=== PATIENT | male | born 1980 | race Caucasian/White ===

== ENCOUNTER 2021-08-13 18:35 | Observation (INO) | payer OTHER, SELFPAY ==
[2021-08-13] VITALS (13 sets, daily range): BP systolic 145–214; BP diastolic 102–140; PULSE 88–107; RESP 14–20; TEMP 36.3–37.7; O2SAT 97–100; BMI 29.6
--- NOTE | ~2021-08-13 | US_ITS ---
EXAMINATION: US retroperitoneal duplex ltd DATE: 08/15/2021 15:13 CDT INDICATION: Hypertensive urgency. TECHNIQUE: Sonographic imaging of the kidneys was performed with a 3.5 MHz transducer. Retroperitone al duplex sonogram of the renal arteries also obtained. FINDINGS: No focal flow abnormalities are seen in the renal arteries on color Doppler. The peak syst olic velocity ranges of the right and left renal arteries and aorta are 76 cm per second, 100 cm per second, and 72 cm per second, respectively. The velocities and renal to aortic ratios are within norm al limits. Renal echotexture is normal bilaterally without hydronephrosis, contour deforming mass or renal stone. Right kidney measures 11.3 cm. Left kidney measures 12.3 cm. IMPRESSION: 1. No Doppler evidence of renal artery stenosis. Reviewed, dictated and finalized at location A.
--- NOTE | ~2021-08-13 | CT_ITS ---
EXAMINATION: CT brain wo con DATE: 08/13/2021 19:24 INDICATION: Dizziness, HIGH bp . TECHNIQUE: Computed tomography (CT) of the head was performed without intravenous contrast. The mA wa s adjusted according to patient size. Iterative reconstruction technique was employed. The dose-lengt h product was 605.33 mGy-cm. COMPARISON: None FINDINGS: No acute intracranial hemorrhage or extra-axial fluid collection. No hydrocephalus, mass, or herniation. No acute ischemic infarct. Unremarkable dural venous sinus attenuation. No acute osseous abnormality. The aerated spaces are clear. William matter lined cleft in the right cerebral hemisphere extending from the extra-axial space to the right lateral ventricle. Lateral ventricles are enlarged with abnormal morphology on the right. Septu m pellucidum is incompletely visualized. Thin corpus callosum, poorly visualized anteriorly. IMPRESSION: No acute intracranial process. Right cerebral closed lip schizencephaly, a congenital malformation. T his can be associated with septo-optic dysplasia, agenesis of the corpus callosum, and other anomalie s. Outpatient MRI of the brain be helpful for further evaluation if not previously characterized. Reviewed, dictated and finalized at location K. IMPRESSION: No acute intracranial process. Right cerebral closed lip schizencephaly, a peter enital malformation. This can be associated with septo-optic dysplasia, agenesi s of the corpus callosum, and other anomalies. Outpatient MRI of the brain be h elpful for further evaluation if not previously characterized.
--- NOTE | 2021-08-13 18:44 | ECG_ITS ---
Measurements Intervals [place] Rate: 101 P: 24 IA: 174 QRS: -1 QRSD: 103 T: 39 QT: 350 QTc: 456 Interpretive Statements SINUS TACHYCARDIA POSSIBLE LEFT ATRIAL ENLARGEMENT POSSIBLE LEFT VENTRICULAR HYPERTROPHY BASELINE ARTIFACT- I, III, AVL, AVF BORDERLINE ECG Electronically Signed On 08-13-2021 20:17:24 CDT by Rajiv Nieto D.O.
--- NOTE | 2021-08-13 18:52 | PC.NURSE ---
Pt to ED with complaints of sudden onset dizziness today while driving. Pt reports he felt light headed and his ears started ringing. Pt states dizziness lasted approximately 30 seconds and then subsided. Pt states he has felt off all day and his legs feel like rubber . Pt states legs feel heavy. Denies any unilateral numbness or weakness. Pt denies vision changes or nausea. Pt A&O x4.
[2021-08-13 19:03] LABS: Basophils Percent Auto 0.4 % (0.2-1.2); Eosinophils Absolute Auto 0.2 K/mm3 (0-0.3); Eosinophils Percent Auto 1.7 % (0-4.4); Hemoglobin 17.2 g/dL (14.0-18.0); Immature Granulocyte Absolute 0.03 K/mm3 (0.00-0.031); Immature Granulocyte Percent A 0.3 % (0-0.5); Lymphocytes Absolute Auto 2.56 K/mm3 (0.9-3.2); Lymphocytes Percent Auto 24.4 % (18.3-44.2); Mean Corpuscular HGB Conc 33.7 g/dl (32-36); Mean Corpuscular Hemoglobin 30.9 pg (26-34); Mean Corpuscular Volume 91.6 fl (80-100); Mean Platelet Volume 9.9 fl (7.4-10.4); Monocytes Absolute Auto 0.7 K/mm3 (0.1-0.6); Monocytes Percent Auto 6.9 % (2.6-8.5); Neutrophils Percent Auto 66.3 % (45.5-73.1); Platelet Count Result 260 k/mm3 (150-375); Red Blood Count 5.57 M/mm3 (4.6-6.20); Red Cell Distribution Width 13.8 % (11.5-14.5); White Blood Count 10.5 K/mm3 (4.5-10.0)
--- NOTE | 2021-08-13 19:04 | PC.NURSE ---
Dr. Zhou made aware of pt's presenting symptoms and current blood pressures. Per Dr. Zhou's verbal orders, give 20mg labetalol IV q10 minutes. Hold for SBP of 180 or less.
[2021-08-13] MEDS: LABETALOL HCL INJ 100 MG/20 ML VIAL 20 MG IV PUSH ×2 (19:09→21:13)
[2021-08-13 19:12] LABS: Alanine Aminotransferase 53 U/L (6-50); Albumin Level 4.9 g/dL (3.5-5.1); Alkaline Phosphatase 94 U/L (38-126); Anion Gap 11 mmol/L (8-16); Aspartate Amino Transferase 48 U/L (17-59); Bilirubin,Total 0.7 mg/dL (0.2-1.3); Blood Urea Nitrogen 14 mg/dL (9-20); Calcium 9.3 mg/dL (8.4-10.2); Carbon Dioxide 28 mmol/L (22-30); Chloride 98 mmol/L (98-107); Estimated CRCL calculation 97 ml/min; Estimated Glomerular Filt Rate > 60; Glucose 120 mg/dL (65-110); Potassium 3.6 mmol/L (3.4-5.0); Sodium 137 mmol/L (137-145)
--- NOTE | 2021-08-13 19:13 | ED.DIZZY ---
HPI - Dizziness General Chief Complaint: Dizziness Stated Complaint: dizziness, legs feel rubbery Time Seen by Provider: 08/13/21 19:12 Source: patient History of Present Illness HPI Narrative: Patient is a 41-year-old male complaining of dizziness accompanied by legs rubbery that started today. Patient states that one of his family members a nurse took his blood pressure and it was 180 systolic . Patient states that he was diagnosed with hypertension 10 years ago but they attributed to anxiety and has been off his medication since then. Patient denies any speech or visual disturbance, focal weakness numbness, unsteady gait, headache, chest pain, shortness of breath, abdominal pain, nausea, vomiting or diaphoresis. Related Data Allergies Allergy/AdvReac Type Severity Reaction Status Date / Time Penicillins Allergy Unknown Verified 08/13/21 18:51 Sulfa (Sulfonamide Allergy Unknown Verified 08/13/21 18:51 Antibiotics) Review of Systems Review of Systems: All systems reviewed & are unremarkable except as noted in HPI and below Constitutional: Constitutional: Denies body ache(s), Denies chills, Denies excessive sweating, Denies fatigue, Denies fever(s), Denies headache(s), Denies lethargy, Denies malaise, Denies weakness and Denies weight loss Eyes: Eyes: Denies blurry vision, Denies change in vision and Denies loss of vision ENT: Denies ear discharge, Denies headache(s), Denies lip swelling, Denies epistaxis, Denies nasal congestion, Denies neck pain, Denies throat swelling and Denies tongue swelling Cardiovascular: Cardiovascular: Denies chest pain, Denies chest pain at rest, Denies chest pain with activity, Denies diaphoresis, Denies rapid heart rate, Denies edema, Denies irregular heart rhythm, Denies lightheadedness, Denies palpitations, Denies dyspnea and Denies dyspnea on exertion Respiratory: Respiratory: Denies chest congestion, Denies cough, Denies hemoptysis, Denies dyspnea and Denies dyspnea on exertion Gastrointestinal: Gastrointestinal: Denies abdominal pain, Denies melena, Denies hematochezia, Denies diarrhea, Denies nausea, Denies vomiting and Denies hematemesis Musculoskeletal: Musculoskeletal: Denies abnormal gait, Denies deformity, Denies joint swelling, Denies limited range of motion, Denies neck pain and Denies numbness Neurologic: Denies Abnormal speech present, Denies abnormal gait, Denies confusion, Denies dizziness, Denies headache(s), Denies focal weakness, Denies loss of vision, Denies numbness, Denies Other visual disturbances, Denies Sensory deficit (Neuro) and Denies weakness Psychiatric: Psychiatric: Denies confusion, Denies depression, Denies auditory hallucinations, Denies homicidal ideation and Denies suicidal ideation Endocrine: Endocrine: Denies cold intolerance, Denies excessive sweating, Denies fatigue, Denies heat intolerance and Denies palpitations Hematologic/Lymphatic: Hematologic/Lymphatic: Denies easy bleeding and Denies easy bruising Allergic/Immunologic: Allergic/Immunologic: Denies lip swelling, Denies throat swelling and Denies tongue swelling PMFSH Comments Past medical history: None Family history: Positive for hypertension neck pain social history: Non-smoker no EtOH or drug use Exam Const: General: cooperative, healthy appearing, comfortable, no acute distress, well developed, alert and awake; No confusion Orientation/consciousness: oriented to person, oriented to place, oriented to time, patient oriented x3 and No confusion Limitations: no limitations HENMT: Head: normal to inspection, normocephalic and atraumatic Ears: hearing grossly normal bilaterally, TM normal on the right and TM normal on the left General nose exam: Normal external nose present, Normal nares present and No nasal discharge present Face and sinus: normal facial exam Mouth: Yes Normal oral and palatal mucosa present, Yes lip normal, Yes tongue normal and Yes oropharynx normal Throat: posterior orop
--- NOTE | 2021-08-13 19:20 | PC.NURSE ---
Assuming care of pt.
[2021-08-13 19:57] LABS: Troponin I < 0.012 ng/mL (0.000-0.034)
[2021-08-13] MEDS: hydrALAZINE HCL 20 MG/ML VIAL 10 MG IV PUSH (19:59)
[2021-08-13] MEDS: LORazepam INJ (*CRX) 2 MG/ML VIAL 1 MG IV PUSH (21:13)
--- NOTE | 2021-08-13 21:59 | ADMGEN ---
This patient, Jairo Myers, was admitted to IMU Room 209-01 at 2159. Patient/family oriented to hospital policies and general routines including ID bracelet, bed and alarms, visiting hours, pain management, procedures, bathroom and other care routines, personal items, smoking policy, room service/diet, and visiting hours. Information on how to activate the Rapid Response Team has been discussed. Patient/Family are encouraged to report perceived risks to care and to ask questions if they do not understand what they are told or what they should do.
--- NOTE | 2021-08-13 23:07 | PM.IMHP ---
H&P: HPI History of Present Illness Date/Time: 08/13/21 23:07 Chief Complaint: Dizziness Narrative: This is a 41-year-old male with past medical history significant for tobacco dependence, alcohol dependence, psychiatric illness. Patient presents to the emergency room from work due to dizziness and feeling his legs rubbery , upon arrival to the emergency room patient was found to have a systolic blood pressure in the 170 to 180s range, patient has not been taking in his medication for blood pressure in many years after he was started on psychiatric treatment for that this took care of his blood pressure as well and therefore no need to continue his home antihypertensive meds. Patient denies any changes of his vision, any chest pain, any shortness of breath, no palpitations, he had near syncopal episode and unsteady gait. In the emergency room patient was noted to have red discoloration of the skin felt to be secondary to his alcohol intake. Preliminary workup has been unrevealing. Patient has been admitted for further evaluation, management and treatment. Review of Systems Review of Systems: Dizziness, legs feel rubbery, near-syncope. Constitutional: Constitutional: Denies fatigue, Denies fever(s) and Denies weakness Eyes: Eyes: Denies change in vision ENT: Denies dysphagia, Reports dizziness, Denies nasal congestion, Denies nasal discharge, Denies nasal obstruction, Denies odynophagia and Reports disequilibrium Cardiovascular: Cardiovascular: Denies chest pain, Denies syncope, Reports pedal edema, Denies claudication, Reports lightheadedness, Denies radiating jaw, neck or arm pain, Denies palpitations and Denies dyspnea on exertion Respiratory: Respiratory: Denies chest congestion, Denies cough and Denies dyspnea Gastrointestinal: Gastrointestinal: Denies abdominal pain, Denies dyspepsia, Denies heartburn, Denies diarrhea, Denies nausea and Denies vomiting Genitourinary: Genitourinary: Denies dysuria Musculoskeletal: Musculoskeletal: Reports other (Legs feel rubbery) Integumentary/Breasts: Skin/Breast: Denies rash Neurologic: Reports dizziness, Denies syncope, Denies focal weakness and Reports Sensory deficit (Neuro) (Legs feel rubbery) Psychiatric: Psychiatric: Reports no additional psychiatric complaints and Reports as per HPI Endocrine: Endocrine: Denies cold intolerance, Denies fatigue, Denies flushing, Denies heat intolerance, Denies polyphagia, Denies polydipsia and Denies palpitations Hematologic/Lymphatic: Hematologic/Lymphatic: Reports no additional hematologic/lymphatic complaints and Reports as per HPI Allergic/Immunologic: Allergic/Immunologic: Reports no additional allergic/immunologic complaints and Reports as per HPI [facility] Family History Family History (Updated 08/13/21 @ 22:04 by Mai Craft RN) Other Adopted Social History Social History Smoking packs per day: 1 Smoking cigarettes per day: 20.0 Smoking status: Current every day smoker Alcohol intake: current Drinks per week: 28 Substance use: never Substance use type: does not use Spiritual care concerns: No Meds Home Medications and Allergies Home Medications Medication Instructions Recorded Confirmed Type duloxetine 60 mg capsule,delayed 120 cap PO .HS 08/13/21 08/13/21 History release (Cymbalta) quetiapine 300 mg tablet (Seroquel) 300 mg PO .HS 08/13/21 08/13/21 History Allergies Allergy/AdvReac Type Severity Reaction Status Date / Time Penicillins Allergy Unknown Verified 08/13/21 18:51 Sulfa (Sulfonamide Allergy Unknown Verified 08/13/21 18:51 Antibiotics) Vital Signs Vital Signs - 24 hr 08/13/21 18:37 08/13/21 18:55 08/13/21 19:07 Temperature 97.4 F L Pulse Rate 95 101 H 99 Respiratory Rate 16 18 16 Blood Pressure 206/135 H 214/131 H 201/140 H Pulse Oximetry 99 100 100 Oxygen Delivery Room Air 08/13/21 19:30
[2021-08-13] MEDS: QUEtiapine FUMARATE 100 MG TABLET 300 MG PO (23:46)
[2021-08-13] MEDS: DULoxetine HCL 60 MG CAPSULE.DR 120 MG PO (23:46)
[2021-08-13] MEDS: chlordiazePOXIDE (*CRX) 25 MG CAPSULE 50 MG PO (23:47)
[2021-08-14] VITALS (19 sets, daily range): BP systolic 123–164; BP diastolic 74–116; PULSE 70–101; RESP 20; TEMP 36.2–37.1; O2SAT 97–100
[2021-08-14] MEDS: chlordiazePOXIDE (*CRX) 25 MG CAPSULE 50 MG PO ×3 (07:18→18:10)
[2021-08-14] MEDS: NICOTINE (*PBKC) 21 MG PATCH 1 PATCH TRANSDERM (08:58)
[2021-08-14] MEDS: ENOXAPARIN 40 MG/0.4 ML SYRINGE SUB-Q (08:59)
--- NOTE | 2021-08-14 11:14 | PC.NURSE ---
All morning assessments were recorded under [place] by mistake. All 0800 assessments were preformend by me (Maya Godfrey)
[2021-08-14] MEDS: CHLORTHALIDONE 25 MG TABLET PO (14:07)
--- NOTE | 2021-08-14 14:12 | PM.IMPN ---
Progress Note: A&P Assessment and Plan (1) Hypertensive urgency: Code(s): I16.0 - Hypertensive urgency Status: Acute Assessment and Plan: BP improving. Will start chlorthalidone today and if BP remains elevated lisinopril 5 mg in the morning. -Renal artery duplex for AM -Add on UDS (2) Alcohol dependence: Code(s): F10.20 - Alcohol dependence, uncomplicated Status: Acute Assessment and Plan: [facility] protocol with scheduled librium Thiamin and folate supplement (3) Tobacco dependence: Code(s): F17.200 - Nicotine dependence, unspecified, uncomplicated Status: Acute Subjective Date/time seen: Date of Service 08/14/21 11:12 Patient says he feels much better. Denies chest pain, shortness of breath, lightheadedness, vision changes. Patient says he was on antihypertensive medication in the past but once his mental health medication was started, his blood pressure normalized, so he no longer needed antihypertensives. Cannot remember which antihypertensive he was on in the past. Review of Systems Eyes: Eyes: Denies blurry vision Cardiovascular: Cardiovascular: Denies chest pain and Denies lightheadedness Respiratory: Respiratory: Denies chest congestion and Denies dyspnea Exam Narrative: GENERAL: NAD, cooperative HEENT: Normocephalic, atraumatic, anicteric, nares clear, oropharynx moist and clear, dentition normal NECK: Supple CV: Normal S1, S2, RRR, No MRG EXTREMITIES: Warm and well perfused, no clubbing, cyanosis, or edema. SKIN: warm, dry and intact. NEURO: CN 2-12 grossly intact Objective Data Vital Signs Vital Signs: Vital Signs - 24 hr 08/14/21 02:00 08/14/21 04:00 08/14/21 04:00 Temperature Pulse Rate 86 87 87 Respiratory Rate 20 Blood Pressure Pulse Oximetry 97 Oxygen Delivery Room Air 08/14/21 04:00 08/14/21 06:00 08/14/21 08:23 Temperature 98.8 F 97.3 F L Pulse Rate 85 82 89 Respiratory Rate 20 20 Blood Pressure 123/84 157/103 H Pulse Oximetry 99 97 Oxygen Delivery 08/14/21 08:51 08/14/21 08:00 08/14/21 11:16 Temperature Pulse Rate Respiratory Rate Blood Pressure 142/116 H Pulse Oximetry 97 97 Oxygen Delivery Room Air Room Air 08/14/21 08:00 08/14/21 10:00 08/14/21 11:55 Temperature 97.6 F Pulse Rate 89 90 90 Respiratory Rate 20 Blood Pressure 164/102 H Pulse Oximetry 100 Oxygen Delivery 08/14/21 16:10 08/14/21 16:00 08/14/21 12:00 Temperature 97.2 F L Pulse Rate 86 88 Respiratory Rate 20 Blood Pressure 157/111 H Pulse Oximetry 100 97 Oxygen Delivery Room Air 08/14/21 14:00 08/14/21 16:00 08/14/21 18:00 Temperature Pulse Rate 100 96 87 Respiratory Rate Blood Pressure Pulse Oximetry Oxygen Delivery 08/14/21 19:59 08/14/21 20:00 08/14/21 20:00 Temperature 98.8 F Pulse Rate 96 101 H Respiratory Rate 20 Blood Pressure 131/74 131/74 Pulse Oximetry 97 Oxygen Delivery 08/14/21 20:00 08/14/21 22:00 08/14/21 23:23 Temperature 98.3 F Pulse Rate 101 H 90 70 Respiratory Rate 20 20 Blood Pressure 159/99 H Pulse Oximetry 97 97 Oxygen Delivery Room Air 08/15/21 00:00 08/15/21 00:00 08/15/21 00:00 Temperature Pulse Rate 93 93 Respiratory Rate 20 Blood Pressure 159/99 H Pulse Oximetry 97 Oxygen Delivery Room Air Intake/Output Intake/Output: Intake & Output 08/12/21 08/13/21 08/14/21 08/15/21 23:59 23:59 23:59 23:59 Intake Total 2260 Balance 2260 Meds/Results Medications: Active Medications Generic Name Dose Route Start Last Admin Trade Name Freq PRN Reason Stop Dose Admin Chlordiazepoxide HCl 50 mg 08/14/21 00:00 08/15/21 00:44 Chlordiazepoxide (*Crx) 25 Mg Capsule PO 50 mg Q6HR MARIBEL Administration Chlorthalidone 25 mg 08/14/21 13:00 08/14/21 14:07 Chlorthalidone 25 Mg Tablet PO 25 mg DAILY MARIBEL Administration Duloxetine HCl 120 mg 08/13/21
--- NOTE | 2021-08-14 16:45 | PC.NURSE ---
Called Dr. Hoyos to report high BP. She said she would rework his medcations and add something new.
[2021-08-14] MEDS: QUEtiapine FUMARATE 100 MG TABLET 300 MG PO (21:11)
[2021-08-14] MEDS: DULoxetine HCL 60 MG CAPSULE.DR 120 MG PO (21:11)
[2021-08-15] VITALS (10 sets, daily range): BP systolic 120–159; BP diastolic 80–101; PULSE 79–101; RESP 18–20; TEMP 35.9–36.8; O2SAT 97–100
[2021-08-15] MEDS: chlordiazePOXIDE (*CRX) 25 MG CAPSULE 50 MG PO ×3 (00:44→11:59)
[2021-08-15 05:24] LABS: Anion Gap 6 mmol/L (8-16); Blood Urea Nitrogen 10 mg/dL (9-20); Calcium 9.1 mg/dL (8.4-10.2); Carbon Dioxide 28 mmol/L (22-30); Chloride 103 mmol/L (98-107); Estimated CRCL calculation 107 ml/min; Estimated Glomerular Filt Rate > 60; Glucose 134 mg/dL (65-110); Potassium 3.6 mmol/L (3.4-5.0); Sodium 137 mmol/L (137-145)
[2021-08-15] MEDS: ENOXAPARIN 40 MG/0.4 ML SYRINGE SUB-Q (10:20)
[2021-08-15] MEDS: NICOTINE (*PBKC) 21 MG PATCH 1 PATCH TRANSDERM (10:20)
[2021-08-15] MEDS: lisinopriL 5 MG TABLET PO (10:21)
[2021-08-15] MEDS: CHLORTHALIDONE 25 MG TABLET PO (10:21)
[2021-08-15 12:29] LABS: Amphetamine Screen Urine Negative (Negative); Barbiturate Screen Urine Negative (Negative); Benzodiazepines Screen Urine Positive (Negative); Cannabinoid Screen Urine Negative (Negative); Cocaine Screen Urine Negative (Negative); Methadone Screen Urine Negative (Negative); Opiate Screen Urine Negative (Negative); Phencyclidine Screen Urine Negative (Negative)
--- NOTE | 2021-08-15 15:17 | PM.DS ---
DS: Admitting Diagnosis Discharge Date 08/15/21 Admitting Diagnosis Hypertensive Urgency DS: Discharge Diagnosis Discharge Diagnosis (1) Hypertensive urgency: Code(s): I16.0 - Hypertensive urgency Status: Acute Assessment and Plan: BP improved with chlorthalidone and lisinopril with SBP 120s-150s the day of discharge. UDS negative except for benzodiazepines, which was given during hospitalization. Renal artery duplex showed no stenosis. ? -Continue lisinopril 5 mg po daily -Continue chlorthalidone 25 mg po daily -Recheck BP daily and take results to next clinic visit -Will need to recheck BMP in one month -Will need workup for secondary causes of hypertension outpatient (2) Alcohol dependence: Code(s): F10.20 - Alcohol dependence, uncomplicated Status: Acute Assessment and Plan: [facility] protocol initiated during hospitalization with librium. -Librium 50 mg po q8h until follow up with primary care physician (3) Tobacco dependence: Code(s): F17.200 - Nicotine dependence, unspecified, uncomplicated Status: Acute Assessment and Plan: Prescribed nicotine patch for discharge and advised to stop smoking. DS: Summary Hospital Course Reason for hospitalization: Hypertensive Urgency Hospital Course: 41M with a past medical history significant for tobacco dependence, ETOH dependences and mental health illness who presented to the ED after having had to pull on the side of the road while driving due to feeling lightheaded and like his arms and legs were rubbery. Patient had previously been on antihypertensives but after being started on medications for his mental health, his blood pressure normalized. In the ED initial blood pressure 206/135. Patient was started on chlordiazepoxide due to concern for alcohol withdrawal. Also, chlorthalidone and lisinopril were started. SBP prior to discharge was in the 120s-150s. On day of discharge, patient denied headache, vision changes, chest pain, shortness of breath. Patient had renal artery duplex, which showed no renal artery stenosis. While the combinations of smoking, ETOH and being overweight is the likely etiology of the hypertension, advised outpatient workup for secondary hypertension. Urine drug screen was only positive for benzodiazepines, which were given during the hospitalization but the patient did not give urine upon initial presentation in the ED. Time Spent with Patient Time attestation: Total time spent providing and/or coordinating discharge services: greater than 30 minutes Exam Narrative: GENERAL: NAD, cooperative HEENT: Normocephalic, atraumatic, anicteric, nares clear, oropharynx moist and clear, dentition normal NECK: Supple CV: Normal S1, S2, RRR, No MRG Resp: CTAB with no wheezes, rhonchi or crackles EXTREMITIES: Warm and well perfused, no clubbing, cyanosis, or edema. SKIN: warm, dry and intact. NEURO: CN 2-12 grossly intact. No focal deficits. DS: Data Data Completed and Pending Completed studies during hospitalization: Renal artery duplex and CT head Labs on day of discharge: Labs from last 24 hours 08/15/21 08/15/21 12:03 04:43 Sodium 137 Potassium 3.6 Chloride 103 Carbon Dioxide 28 Anion Gap 6 L BUN 10 Creatinine 0.80 Estim Creat Clear Calc 107 Estimated GFR > 60 Glucose 134 H Calcium 9.1 Urine Opiates Screen Negative Urine Methadone Screen Negative Ur Barbiturates Screen Negative Ur Phencyclidine Scrn Negative Ur Amphetamine Screen Negative U Benzodiazepines Scrn Positive A Urine Cocaine Screen Negative U Cannabinoids Screen Negative Discharge Plan Discharge Attending physician on discharge: Nickie Hoyos Consulting providers: Marcell Monae Discharging Clinician: Nickie Hoyos Anticipated Discharge Date/Time: 08/15/21 15:45 Patient Disposition: Home, Self-Care Activity: as tolerated Diet: low so
== END 2021-08-15 17:07 | disposition home or self-care (01) ==
LOC: ANHED 21:04 → ANHIMU 08-14 00:56
PROVIDERS: Emergency Medicine; Admitting Provider Internal Medicine; Emergency Provider Emergency Medicine; Visit Provider Family Medicine
DX: I16.0 Hypertensive urgency (principal); R42 Dizziness and giddiness; F10.20 Alcohol dependence, uncomplicated; F17.210 Nicotine dependence, cigarettes, uncomplicated
CPT/HCPCS: 36415; 70450; 80048; 80053; 80307; 84484; 85025; 93005; 93976; 96372; 96374; 96375; 96376; 99285; A9270; G0378; J0360; J1650; J2060